=== PATIENT | female | born 1940 | race Caucasian/White ===

== ENCOUNTER → 2017-02-16 | Outpatient (CLI) | payer OTHER, BC ==
[~2017-02-16] MED LIST: DIPHENOXYLATE/A1 TA1 PO; ENTOCORT EC 3 MG3 MG PO; EVISTA PO; HYDROCODONE-AP1 EAC6 PO; HYDROXYCHLOROQ200 M1 PO; IMODIUM A-D1 MG/5 ML PO; KEFLEX500 MG PO; PREVALITE PACKE1 PKT PO; QUESTRAN LIGHT210 GM PO; TYLENOL325 MG PO; VALTREX1000 MG PO; ZOVIRAX15 GM TOP
== END ==
LOC: RAD 01:05
DX: Z12.31 Encounter for screening mammogram for malignant neoplasm of breast (principal)

== ENCOUNTER → 2018-04-17 | Outpatient (CLI) | payer OTHER, BC | LOC: RAD 14:35 | DX: Z12.31 Encounter for screening mammogram for malignant neoplasm of breast (principal) ==

== ENCOUNTER → 2019-04-23 | Outpatient (CLI) | payer OTHER, BC | LOC: RAD 15:20 | DX: Z12.31 Encounter for screening mammogram for malignant neoplasm of breast (principal) ==

== ENCOUNTER → 2019-04-28 | Outpatient (CLI) | payer OTHER, BC | LOC: RAD 01:57 | DX: N64.89 Other specified disorders of breast (principal); R92.8 Other abnormal and inconclusive findings on diagnostic imaging of breast ==

== ENCOUNTER 2021-05-26 21:01 | Inpatient (IN) | payer OTHER, BC ==
[~2021-05-26] VITALS: Ht 152.4 cm; Wt 54.0 kg
[2021-05-26 21:02] VITALS: BP 129/90
[2021-05-26 21:54] LABS: HEMATOCRIT 47.9 % (37.0-47.0); HEMOGLOBIN 16.3 gm/dL (12.0-15.0); MCV 111.9 fL (80.0-100.0); RBC 4.28 mil/uL (4.20-5.00); RDW 14.1 % (10.5-14.5)
[2021-05-26 21:57] LABS: URINE BILIRUBIN NEGATIVE (Negative); URINE BLOOD NEGATIVE (Negative); URINE CLARITY CLEAR; URINE COLOR YELLOW; URINE GLUCOSE-RANDOM* NEGATIVE (Negative); URINE KETONES TRACE (Negative); URINE NITRITE-REFLEX NEGATIVE (Negative); URINE PROTEIN (DIPSTICK) NEGATIVE (Negative); URINE SPECIFIC GRAVITY >= 1.030 (1.005-1.035); URINE UROBILINOGEN 0.2 E.U./dl (0.2-1.0)
[2021-05-26 22:03] LABS: URINE LEUKOCYTES-REFLEX 1+ (Negative)
[2021-05-26 22:08] LABS: CALCIUM 8.3 mg/dL (8.5-10.1); CREATININE 0.8 mg/dL (0.6-1.0); POTASSIUM 3.5 mmol/L (3.5-5.1)
[2021-05-26 22:13] LABS: SQUAMOUS >10 Many /LPF (0-3); URINE RBC 1-2 Rare /HPF (NONE SEEN); URINE WBC-REFLEX 6-15 Few /HPF (0-5)
[2021-05-26 22:14] LABS: CASTS None Seen /LPF (None Seen); CRYSTALS None Seen /LPF (None Seen); MUCUS >6 Heavy strn/LPF (None Seen)
[2021-05-26 22:14] LABS: ALBUMIN 2.9 g/dL (3.4-5.0); DIRECT BILIRUBIN 0.3 mg/dL (<0.1-0.2); TOTAL BILIRUBIN 1.1 mg/dL (0.2-1.0); TOTAL PROTEIN 6.2 g/dL (6.4-8.2)
[2021-05-26 23:02] LABS: ABSOLUTE NEUTROPHILS 9.7 thou/uL (1.4-8.2); ANISOCYTOSIS 1+; MACROCYTES 3+; NUCLEATED RBCS 1 /100WBC; PLATELET COUNT 203 thou/uL (150-400); PLATELET ESTIMATE NORMAL; POIKILOCYTOSIS 1+
[2021-05-26 23:03] LABS: LARGE PLATELETS FEW
[2021-05-27 02:40] VITALS: BP 133/78
--- NOTE | 2021-05-27 02:55 | NUR ---
PT WOULD LIKE TO BE CALLED IF NOT AT THE BEDSIDE WITH PT REGARDS TO MEDICAL INFORMATION. THOR CHARLES-CELL:[phone] HOME:[phone]
--- NOTE | 2021-05-27 02:57 | NUR ---
THIS NURSE NOTIFIED THE INPATIENT NURSE OF THE 'S REQUEST TO BE CONTACTED ABOUT MEDICAL INFORMATION, SPECIFICALLY WHEN THE SURGEON HAS INITIAL ASSESSMENT.
[2021-05-27 03:32] VITALS: BP 136/77
--- NOTE | 2021-05-27 07:11 | EKG ---
[address] [place] [address] ELECTROCARDIOGRAM REPORT Name: ANJELICA CHARLES Room #: 438-P ADM IN [facility].#: [id number] Admission: 05/27/21 Attend Phys: Jeff Carias MD Discharge: Date of : 36 Report #: [id number] [facility] ED Test Date: 2021-05-26 Test Time: 22:55:43 Pat Name: ANJELICA CHARLES Department: Room: [facility] Gender: F Property Maintenance Technician: sarah : 1940 Requested By: Anette Lopez Order Number: [id number] MD: Dawit Wagner Measurements Intervals [place] Rate: 64 P: -16 VA: 142 QRS: -57 QRSD: 105 T: 44 QT: 510 QTc: 527 Interpretive Statements Sinus rhythm Atrial premature complex LAD, consider left anterior fascicular block Abnrm T, consider ischemia, anterolateral lds Prolonged QT interval Compared to ECG 04/14/2006 12:36:23 Atrial premature complex(es) now present Possible ischemia now present Prolonged QT interval now present T-wave abnormality no longer present Electronically Signed On 05-27-2021 7:11:29 CDT by Dawit Wagner [email or web address] <ELECTRONICALLY SIGNED> By: Dawit Wagner MD, FAC 05/27/21 0711 [id number] Dawit Wagner MD, [facility] /EPI
--- NOTE | 2021-05-27 07:30 | NUR ---
PT ARRIVED ON THE UNIT AT O300 ON THE BED. PT WAS AXO BUT CAN BE FORGETFUL. PT WALKED TO THE BED WITH MIN ASSISTANCE. PT COMPLAINED OF ABD PAIN WHICH WAS MANAGED WITH MEDS. PT CAME TO THE FLOOR WITH STREET CLOTHES. PT WAS ORIENTED TO THE ROOM AND EDUCATED ON THE USE OF CALL LIGHT FOR ASSISTANCE. PT WAS ASSISTED TO THE BSC WITH A WALKER. PT INSISTED ON DRINKING WATER AND WAS REMINDED ABOUT BEING NPO. IV WAS INFILTRATED AND WAS REPLACED. PT'S BUTTOCK WAS RED ON ASSESSMENT AND ZGAURD WAS APPLIED.REPORT TO AM NURSE.
[2021-05-27 07:32] VITALS: BP 130/74
--- NOTE | 2021-05-27 07:34 | NUR ---
CONSULT CALLED TO DR CHOWDHURY VIA ANSWERING SERVICE THIS AM.
--- NOTE | 2021-05-27 09:13 | NUR ---
ASSESSMENT: CM REVIEWED CHART AND MET WITH PATIENT AND HER SPOUSE AT THE BEDSIDE. PT IS ALERT AND ORIENTED X4. PT WAS ADMITTED DUE TO ABDOMINAL PAIN AND POSSIBLE PARTIAL SBO. SURGERY HAS BEEN CONSULTED AND AWAITING INUT AT THIS TIME. PT IS ON IV HYDRATION. PT REPORTS THAT SHE LIVES IN A HOUSE WITH HER . PT REPORTS HAVING A COUPLE OF STEPS TO ENTER THE HOME WITH [employer]S AND ABOUT 3 STEPS WITH [employer] TO HER BEDROOM. PT REPORTS SHE HAS A WALKER TO USE AT TIMES AND NORMALLY USES IT IN THE BEDROOM TO GO TO THE BATHROOM. PT REPORTS THEY HAVE A GRAB BAR AND SHOWER CHAIR AND SHE IS NORMALLY INDEPENDENT WITH ADLS. PT HAS BEEN TO [employer] IN THE PAST. PT DENIES HAVING HH IN THE PAST. CM DISCUSSED ROLE. PT STATING SHE SHOULD BE FINE AND DOES NOT ANTICIPATE HAVING ANY NEEDS FROM CM. CM WILL CONTINUE TO FOLLOW.
--- NOTE | 2021-05-27 14:58 | NUR ---
Assesses pt. at 7:00 am. She was anxious stating she wanting to leave the hospital YANIV. When was the surgeon coming in? I reassured her he would be in shortly and let her know what was required. ordered laproscopic surgery for inguinal hernia. Gave pt. tylenol for level 2 pain. She was AXOX4 continent on room air. An hour later she was sleeping comfortably. Her stomach was distended. Bed in low position. Fall precaution in effect. She left for surgery around 13:00. Will continue to monitor when she returns from surgery.
[2021-05-27 20:29] VITALS: BP 116/79
[2021-05-27 20:41] VITALS: BP 116/79
[2021-05-28 00:07] LABS: GLYCOHEMOGLOBIN (HGB A1C) 5.3 % (4.8-5.6)
[2021-05-28 05:39] LABS: MCH 37.9 pg (26.0-34.0); MCHC 33.6 g/dL (28.0-37.0); RBC 3.72 mil/uL (4.20-5.00); WBC 11.1 thou/uL (4.0-11.0)
[2021-05-28 05:49] LABS: CALCIUM 6.7 mg/dL (8.5-10.1); CREATININE 0.6 mg/dL (0.6-1.0); HEMOGLOBIN 14.1 gm/dL (12.0-15.0); MAGNESIUM 1.5 mg/dL (1.8-2.4)
[2021-05-28 07:35] VITALS: BP 123/71
--- NOTE | 2021-05-28 07:46 | NUR ---
UPON SHIFT ASSESSMENT, PT AOX4, RESPONDING TO ORIENTATION PROMPTS APPROPRIATELY, NOTED TO HAVE INTERMITTENT FORGETFULNESS. PT DENIES PAIN AND SOB WHILE ON ROOM AIR. PT HAS PRN IV FENTANYL Q3HR AND PRN PO APAP Q6HR AVAILABLE. PT TOLERATING PO INTAKE OF FLUIDS AND CLEAR LIQUID DIET WITHOUT ISSUE. PT WITHOUT NAUSEA OR EMESIS. PT AMBULATING WITH WALKER AND X1 ASSIST TO BEDSIDE COMMODE, RESTING IN BED OTHERWISE. FREQUENT REPOSISTIONING ENCOURAGED WHILE IN BED, PT NOTED TO SHIFT INDEPENDENTLY. SENSATION INTACT, CAPILLARY REFILL LESS THAN 3SEC, PERIPHERAL PULSES PALPABLE IN ALL EXTREMITIES. PT ENCOURAGED TO NOTIFY STAFF FOR ALL NEEDS, CALL LIGHT WITHIN REACH, BED ALARM ON, BED LOCKED IN LOWEST POSITION, FREQUENT MONITORING WILL CONTINUE.
[2021-05-28 13:50] LABS: % SATURATION 23 % (20-39); IRON 35 ug/dL (50-170); TIBC 151 ug/dL (250-450)
[2021-05-28 13:53] LABS: FOLIC ACID 10.8 ng/mL (8.6-58.9)
--- NOTE | 2021-05-28 14:34 | NUR ---
Assessed pt at 7:00 am AxOx3. Pt concerned where has been. Explained visiting hours. Discussion on blood work and need for Mg and K replacement. 3 incisional sites on abdomen remain steri-stripped with minimal drainage noted. Pt is able to get OOB x 1 assist and GB to restroom. She has been continent today. Lungs clear on room air with bowel sounds present. No c/o pain. Ambulated in hallway multiple times. IV in Left FA infusing NS at 100ml/hr. Continues to refuse SCD's. Diet changed to regular diet. Bed in low position. Fall precautions in place. Will continur to monitor this shift and give report to night RN.
[2021-05-28 15:25] VITALS: BP 125/48
--- NOTE | 2021-05-29 04:40 | NUR ---
PT AMBULATING TO BATHROOM WITH ASSIST AND IS TOLERATING FAIR. DENIES PAIN. RESTLESS THIS SHIFT. CALL LIGHT WITHIN REACH. FREQUENT OBSERVATION.
[2021-05-29 08:43] VITALS: BP 120/69
--- NOTE | 2021-05-29 10:37 | NUR ---
ASSUMED PT CARE THIS AM. PT IS VERY DEMANDING AND CONFUSED AT TIMES. PT BEEN WANTING TO GO HOME AND INFORMED DR. DE LA ROSA AT THE BEDSIDE. GIVEN ANXIETY MEDICATION TO RELAX PT. PT HAS IV SITE ON L FA. PT IS UP WITH ASSIST X1 WITH GAITBELT AND WALKER TO THE BATHROOM. PT HAS 3 LAP SITE FROM SURGERY ON 05/27. PT ON THE BED, BED ON THE LOWEST POSITION, SIDE RAILS UP, CALL LIGHT WITHIN REACH.
--- NOTE | 2021-05-29 10:43 | O ---
[facility] [place] [address] OPERATIVE REPORT Name: ANJELICA CHARLES Room #: 438-P ADM IN M.R.#: [id number] Admission: 05/27/21 Attend Phys: Roberto Mckeon MD Discharge: Date of : 36 Report #: [id number] THIS REPORT FOR: cc: Catherine Gaytan MD, Carrie W. MD Patterson,Sreedhar Gallardo MD ~ DATE OF SERVICE: 05/27/2021 PREOPERATIVE DIAGNOSIS: Incarcerated right inguinal hernia. POSTOPERATIVE DIAGNOSIS: Incarcerated right inguinal hernia. OPERATION: Laparoscopic repair of incarcerated right inguinal hernia with mesh. SURGEON: Sreedhar Zee MD ANESTHESIA: General. ESTIMATED BLOOD LOSS: Minimal. SPECIMENS: None. DESCRIPTION OF PROCEDURE: After informed consent was obtained, the patient was brought to the operating room and placed supine. SCDs were placed and working, preoperative antibiotics were administered, general anesthesia was induced. The Arango catheter was placed. The abdomen was prepped and draped in the usual sterile fashion. A 10 mm incision was made above the umbilicus. Fascia was incised and a trocar was placed. Pneumoperitoneum was established. Right and left-sided 5 mm trocars were placed. The patient was placed in the Trendelenburg position. The peritoneum at the right ASIS was scored. Peritoneum was then incised and reflected inferiorly. I identified the pubic bone. She had a direct inguinal hernia. This was fully reduced. The round ligament was identified. After the hernia had been fully reduced, I inserted a large Bard 3DMax mesh. It was tacked to the pubic bone with 2 absorbable tacks. I then placed the peritoneum over the mesh. There was 100% coverage of the mesh with peritoneum. The peritoneum was then tacked together to reapproximate it. The ports were then removed under direct vision. The fascia at the umbilicus was closed with a [id number] 0 Vicryl. Skin was closed with 4-0 Monocryl. Incisions were sealed with Steri-Strips. COMPLICATIONS: None. [facility] [address] [place] [address] OPERATIVE REPORT Name: ANJELICA CHARLES Room #: 438-P [facility] IN ..#: [id number] Admission: 05/27/21 Attend Phys: Rboerto Mckeon MD Discharge: Date of : 36 Report #: [id number] DISPOSITION: The patient was taken to recovery in satisfactory condition. <ELECTRONICALLY SIGNED> By: Sreedhar Zee MD 05/29/21 1043 [id number] Sreedhar Zee MD /nt
[2021-05-29] MEDS ORDERED: CEFPODOXIME PR200 M1 PO (11:41)
[2021-05-29 12:12] VITALS: BP 120/69
== END 2021-05-29 12:45 | disposition home or self-care (01) | DRG 351 ==
LOC: ER 21:01 → EROBS 05-27 01:23 → 4S 05-27 01:23
PROVIDERS: Nurse Practitioner; Nurse Practitioner Family; ADMIT Internal Medicine; ATTEND Internal Medicine
PROC: 0YU54JZ Supplement Right Inguinal Region with Synthetic Substitute, Percutaneous Endoscopic Approach (ICD-10-PCS; principal; 2021-05-27)
DX: K40.30 Unilateral inguinal hernia, with obstruction, without gangrene, not specified as recurrent (principal); N39.0 Urinary tract infection, site not specified; K58.9 Irritable bowel syndrome, unspecified; M06.9 Rheumatoid arthritis, unspecified; R73.9 Hyperglycemia, unspecified; M81.0 Age-related osteoporosis without current pathological fracture; E87.6 Hypokalemia; E83.42 Hypomagnesemia; D75.89 Other specified diseases of blood and blood-forming organs; M85.80 Other specified disorders of bone density and structure, unspecified site; Z79.899 Other long term (current) drug therapy; Z87.891 Personal history of nicotine dependence
CPT/HCPCS: 10195; 50010; 50101; 50411; 50455; 50555; 50687; 50854; 51489; 52265; 52266; 53307; 53314; 56525; 56526; 58574; 62110; 62900; 70005